=== PATIENT | male | born 1950 | race Caucasian/White ===

== ENCOUNTER 2024-03-03 08:44 | Outpatient (CLI) | payer MEDICARE | END 2024-03-03 08:45 | disposition home or self-care (01) | LOC: CSHSLEEP 08:44 | PROVIDERS: ATTEND Otolaryngology Otolaryngic Allergy | DX: G47.33 Obstructive sleep apnea (adult) (pediatric) (principal); R53.83 Other fatigue; G47.61 Periodic limb movement disorder; R00.1 Bradycardia, unspecified | CPT/HCPCS: 95810 ==